=== PATIENT | male | born 1955 | race Caucasian/White ===

== ENCOUNTER 2018-01-29 10:09 | Inpatient (IN) | payer MEDICARE ==
[2018-01-29] MEDS ORDERED: NITROGLYCERIN 0.4 MG/TAB BOTTLE ONE (10:28)
[2018-01-29] MEDS ORDERED: ASPIRIN 325 MG TABLET ONE (10:28)
[2018-01-29] MEDS ORDERED: ASPIRIN 325 MG TABLET PO ONE (10:30)
[2018-01-29] MEDS ORDERED: NITROGLYCERIN 0.4 MG/TAB BOTTLE SL ONE (10:30)
[2018-01-29] MEDS ORDERED: ONDANSETRON HCL/PF 4 MG/2 ML VIAL IVP PRN (12:00)
[2018-01-29] MEDS ORDERED: ACETAMINOPHEN 325 MG TABLET PO PRN (12:00)
[2018-01-29] MEDS ORDERED: DOCUSATE SODIUM 100 MG CAPSULE PO PRN (12:00)
[2018-01-29] MEDS ORDERED: MORPHINE SULFATE INJ 2 MG/ML DISP.SYRIN IV PRN ×2 (12:00)
[2018-01-29] MEDS ORDERED: NITROGLYCERIN 0.4 MG/TAB BOTTLE SL PRN (12:00)
[2018-01-30] MEDS ORDERED: ASPIRIN EC 81 MG TABLET.DR PO SCH (09:00)
[2018-01-30] MEDS ORDERED: ASPIRIN 325 MG TABLET PO SCH (09:00)
[2018-01-30] MEDS ORDERED: ASPI-1152 PO (10:52)
== END 2018-01-30 12:00 | disposition home or self-care (01) | DRG 206 ==
DX: M94.0 Chondrocostal junction syndrome [Tietze] (principal); F41.9 Anxiety disorder, unspecified; I45.10 Unspecified right bundle-branch block; Z88.0 Allergy status to penicillin; R42 Dizziness and giddiness; R73.9 Hyperglycemia, unspecified

== ENCOUNTER 2023-03-17 10:12 | Emergency (ER) | payer MEDICARE, OTHER ==
[~2023-03-17] VITALS: Ht 172.7 cm; Wt 82.6 kg
[~2023-03-17 10:12] MED LIST: ASPI-1420 PO
[2023-03-17 10:25] VITALS: TEMP 97.9
--- NOTE | 2023-03-17 11:00 | NUR ---
ASSUME PATIENT CARE, C/O NECK PAIN R/T R UPPER EXTREMITY X 8 DAYS. UNRELIEVED W OTC PAIN MEDICATION. GOWNED PLACED ON MONITOR. AWAITING MD WITT.
--- NOTE | 2023-03-17 11:24 | NUR ---
DR PORTILLO AT BEDSIDE FOR EVAL.
[2023-03-17] MEDS ORDERED: CYCLOBENZAPRINE 10 MG TABLET PO ONE (11:30)
[2023-03-17] MEDS ORDERED: ACETAMINOPHEN ES 500 MG TABLET PO ONE (11:30)
[2023-03-17] MEDS ORDERED: KETOROLAC TROMETHAMINE INJ 30 MG/ML VIAL IM ONE (11:30)
[2023-03-17] MEDS ORDERED: ACETAMINOPHEN ES 500 MG TABLET ONE (11:44)
[2023-03-17] MEDS ORDERED: KETOROLAC TROMETHAMINE INJ 30 MG/ML VIAL ONE (11:44)
[2023-03-17] MEDS ORDERED: CYCLOBENZAPRINE 10 MG TABLET ONE (11:45)
[2023-03-17] MEDS ORDERED: CYCL5TAB PO (12:23)
[2023-03-17] MEDS ORDERED: KETO10TA2 PO (12:23)
[2023-03-17] MEDS ORDERED: ACET-2605 PO (12:23)
[2023-03-17 12:42] VITALS: BP 138/84
--- NOTE | 2023-03-17 12:42 | NUR ---
Patient discharged to home in stable condition. Written and verbal after care instructions given. Patient verbalizes understanding of instruction.
== END 2023-03-17 12:43 | disposition home or self-care (01) ==
LOC: ER 10:16
DX: M54.12 Radiculopathy, cervical region (principal); Z79.899 Other long term (current) drug therapy; Z79.82 Long term (current) use of aspirin; Z60.2 Problems related to living alone; Z88.0 Allergy status to penicillin
CPT/HCPCS: 99283; 96372; J1885

== ENCOUNTER 2023-08-03 16:27 | Emergency (ER) | payer OTHER ==
[~2023-08-03] VITALS: Ht 167.6 cm; Wt 82.1 kg
[~2023-08-03 16:27] MED LIST changes: +ACET-2605 PO; +CYCL5TAB PO; +KETO10TA2 PO
[2023-08-03 16:57] VITALS: BP 137/84; TEMP 98.4; O2SAT 100
[2023-08-04] MEDS ORDERED: CYCL5TAB PO (13:36)
== END 2023-08-03 18:52 | disposition left against medical advice (07) ==
LOC: ER 16:37
DX: M54.50 Low back pain, unspecified (principal); Z53.21 Procedure and treatment not carried out due to patient leaving prior to being seen by health care provider

== ENCOUNTER 2023-08-04 12:39 | Emergency (ER) | payer OTHER ==
[~2023-08-04] VITALS: Ht 172.7 cm; Wt 79.4 kg
[2023-08-04] MEDS ORDERED: CYCLOBENZAPRINE 10 MG TABLET ONE (13:20)
[2023-08-04] MEDS ORDERED: IBUPROFEN 600 MG TABLET ONE (13:21)
[2023-08-04] MEDS: IBUPROFEN 600 MG TABLET PO ONE (13:26)
[2023-08-04] MEDS: CYCLOBENZAPRINE 10 MG TABLET PO ONE (13:26)
[2023-08-04] MEDS ORDERED: CYCL5TAB PO (13:36)
[2023-08-04 14:08] VITALS: BP 118/78; TEMP 98.2; O2SAT 98
== END 2023-08-04 14:09 | disposition home or self-care (01) ==
LOC: ER 12:41
DX: M54.50 Low back pain, unspecified (principal); Z88.0 Allergy status to penicillin; Z60.2 Problems related to living alone; V89.2XXA Person injured in unspecified motor-vehicle accident, traffic, initial encounter; Y93.89 Activity, other specified; Y92.89 Other specified places as the place of occurrence of the external cause; Y99.8 Other external cause status